=== PATIENT | male | born 2005 | race Two or more races ===

== ENCOUNTER 2025-03-19 03:02 | Emergency (ER) | payer OTHER ==
[~2025-03-19] VITALS: Ht 190.5 cm; Wt 131.8 kg
[2025-03-19 03:09] VITALS: BP 156/92; PULSE 96; RESP 16; TEMP 98.6; O2SAT 100
[2025-03-19] MEDS: FLUORESCEIN SODIUM 1 MG STRIP OS ONE (05:16)
[2025-03-19] MEDS ORDERED: MOXI3DRO25 OS (05:30)
== END 2025-03-19 06:08 | disposition still patient (30) ==
LOC: EMS 03:04
DX: H10.212 Acute toxic conjunctivitis, left eye (principal); Z90.49 Acquired absence of other specified parts of digestive tract
CPT/HCPCS: 99283